=== PATIENT | female | born 1970 | race Caucasian/White ===

== ENCOUNTER 2020-12-23 06:12 | Emergency (ER) | payer OTHER ==
[~2020-12-23] VITALS: Ht 167.6 cm; Wt 95.0 kg
[2020-12-23] MEDS ORDERED: KETOROLAC 30MG/ML VIAL IV STA (07:10)
[2020-12-23] MEDS ORDERED: SODIUM CHLORIDE 0.9% 1,000 ML IV ONE (07:15)
[2020-12-23 08:54] LABS: HEMATOCRIT. 34.2 % (36.0-48.0); HEMOGLOBIN. 11.9 g/dL (12.0-16.0); MEAN CORPUSCULAR HEMOGLOBIN 29.9 pg (28.0-32.0); PLATELET 150 x1000/uL (130-400); RED BLOOD CELL COUNT 3.97 mill/uL (4.2-5.4); RED CELL DISTRIBUTION WIDTH 13.6 % (11.6-14.6)
[2020-12-23 08:58] LABS: CHLORIDE 106 mEq/L (98-107)
[2020-12-23 09:09] LABS: ETHANOL BLOOD < 10 mg/dL
[2020-12-23 09:14] LABS: HCG SCREEN NEGATIVE
[2020-12-23] MEDS ORDERED: METOCLOPRAMIDE HCL 10MG/2ML VIAL IV ONE (09:45)
[2020-12-23] MEDS ORDERED: DEXAMETHASONE 4MG/ML 1ML VIAL IV ONE (09:45)
[2020-12-23] MEDS ORDERED: DIPHENHYDRAMINE 50MG/ML VIAL IV ONE (09:45)
[2020-12-23] MEDS ORDERED: ONDA4TAB5 MT (10:32)
[2020-12-23] MEDS ORDERED: IBUP-2028 MT (10:32)
[2020-12-23] MEDS ORDERED: TRAM50TA3 MT (10:32)
[2020-12-23 10:37] LABS: PLATELET ESTIMATE NORMAL
[2020-12-23 11:15] VITALS: BP 128/84
== END 2020-12-23 11:17 | disposition home or self-care (01) ==
LOC: ER 06:12 → EDSEX 06:12 → ER 11:17
DX: F15.188 Other stimulant abuse with other stimulant-induced disorder (principal); F12.188 Cannabis abuse with other cannabis-induced disorder; R51.9 Headache, unspecified; M54.2 Cervicalgia; R41.0 Disorientation, unspecified; M54.89 Other dorsalgia; R00.0 Tachycardia, unspecified; R03.0 Elevated blood-pressure reading, without diagnosis of hypertension; D64.9 Anemia, unspecified; F20.9 Schizophrenia, unspecified; R79.89 Other specified abnormal findings of blood chemistry; Z71.51 Drug abuse counseling and surveillance of drug abuser
CPT/HCPCS: 36415; 70450; 80053; 80320; 84703; 85025; 96361; 96374; 96375; 99284; J1100; J1200; J1885; J2765; J7030; G0480

== ENCOUNTER 2023-04-28 15:09 | Emergency (ER) | payer MEDICAID, OTHER ==
[~2023-04-28] VITALS: Ht 167.6 cm; Wt 73.0 kg
[~2023-04-28 15:09] MED LIST: IBUP-2028 MT; ONDA4TAB5 MT; TRAM50TA3 MT
[2023-04-28] MEDS ORDERED: ALBUTEROL (15:12)
[2023-04-28] MEDS ORDERED: NITROGLYCERINE (15:12)
[2023-04-28 15:13] VITALS: O2SAT 100
[2023-04-28] MEDS ORDERED: KETOROLAC 30MG/ML VIAL IM ONE (16:30)
[2023-04-28] MEDS ORDERED: GABAPENTIN 300MG CAPSULE PO ONE (16:30)
[2023-04-28] MEDS ORDERED: ACETAMINOPHEN 325MG TABLET PO ONE (16:30)
[2023-04-28 17:27] VITALS: BP 107/68; PULSE 116; RESP 18; TEMP 97.7
[2023-04-28] MEDS ORDERED: IBUP-2029 MT (18:31)
== END 2023-04-28 20:16 | disposition home or self-care (01) ==
LOC: ER 15:09
DX: T75.4XXA Electrocution, initial encounter (principal); J44.9 Chronic obstructive pulmonary disease, unspecified; I25.2 Old myocardial infarction; F12.10 Cannabis abuse, uncomplicated; Z86.73 Personal history of transient ischemic attack (TIA), and cerebral infarction without residual deficits; Z88.0 Allergy status to penicillin; X58.XXXA Exposure to other specified factors, initial encounter
CPT/HCPCS: 99283